=== PATIENT | female | born 1980 | race Caucasian/White ===

== ENCOUNTER 2016-12-13 14:47 | Emergency (ER) | payer OTHER ==
[2016-12-13 14:58] VITALS: BP 131/70; PULSE 95; RESP 18; TEMP 97.7
[2016-12-13] MEDS ORDERED: MORPHINE SULFATE 4 MG/ML SYRINGE IM STA (15:15)
[2016-12-13] MEDS ORDERED: ORPHENADRINE 30 MG/ML 2 ML VIAL IM STA (15:15)
--- NOTE | 2016-12-13 15:17 | ED ---
Back Pain HPI - General Chief Complaint: Back Pain/Injury Stated Complaint: back injury Time Seen by Provider: 12/13/16 15:00 Source: patient, RN notes reviewed Mode of arrival: wheelchair Limitations: no limitations - History of Present Illness Initial Comments: 36-year-old female presents emergency Department chief complaint of back pain. Patient states she was lifting a basket" today and felt a pop in her back. She has pain on left side of her low back. Patient denies any bowel, bladder incontinence or retention. Denies any saddle anesthesias. Patient has no abdominal pain. She did try some ibuprofen earlier today with no relief. Patient states she has no history of back pain. Pain is worse with movement better at rest. - Related Data Previous Rx's Medication Instructions Recorded Cyclobenzaprine [Flexeril] 10 mg PO TID PRN #15 tab 12/13/16 Hydrocodone/Acetaminophen [Hagan 1 tab PO Q6HR PRN #20 tab 12/13/16 5-325] Allergies Allergy/AdvReac Type Severity Reaction Status Date / Time sulfamethoxazole Allergy Swelling Verified 12/13/16 14:58 [From Bactrim] tramadol Allergy Nausea & Verified 12/13/16 14:58 Vomiting & Diarrhea trimethoprim [From Bactrim] Allergy Swelling Verified 12/13/16 14:58 Review of Systems ROS Statement: Those systems with pertinent positive or pertinent negative responses have been documented in the HPI. ROS Other: All systems not noted in ROS Statement are negative. Past Medical History Past Medical History: No Reported History History of Any Multi-Drug Resistant Organisms: None Reported Past Surgical History: Tubal Ligation Past Psychological History: No Psychological Hx Reported Smoking Status: Never smoker Past Alcohol Use History: None Reported Past Drug Use History: None Reported General Exam Limitations: no limitations General appearance: alert, in no apparent distress Neck exam: Present: normal inspection, full ROM. Absent: tenderness, meningismus, lymphadenopathy Respiratory exam: Present: normal lung sounds bilaterally. Absent: respiratory distress, wheezes, rales, rhonchi, stridor Cardiovascular Exam: Present: regular rate, normal rhythm, normal heart sounds. Absent: systolic murmur, diastolic murmur, rubs, gallop, clicks GI/Abdominal exam: Present: soft, normal bowel sounds. Absent: distended, tenderness, guarding, rebound, rigid Extremities exam: Present: normal inspection, full ROM, normal capillary refill. Absent: tenderness, pedal edema, joint swelling, calf tenderness Back exam: Present: full ROM, tenderness (Mild tenderness left low back, left paraspinal of the lumbar region), paraspinal tenderness, other (Pain with straight leg raise). Absent: vertebral tenderness Neurological exam: Present: alert, oriented X3, CN II-XII intact, reflexes normal. Absent: motor sensory deficit Course Vital Signs 12/13/16 14:56 Temperature 97.7 F Pulse Rate 95 Respiratory 18 Rate Blood Pressure 131/70 O2 Sat by Pulse 97 Oximetry Medical Decision Making - Medical Decision Making 36-year-old female presented emergency from for low back pain. Patient has a lumbar strain. Patient has no red flag symptoms no neurological deficits. Patient given pain relief here in emergency department, pain medication to go home with return parameters discussed. Disposition Clinical Impression: Strain of lumbar region Disposition: HOME SELF-CARE Condition: Stable Instructions: Acute Low Back Pain (ED) Additional Instructions: Please return to the Emergency Department if symptoms worsen or any other concerns. Prescriptions: Cyclobenzaprine [Flexeril] 10 mg PO TID PRN #15 tab PRN Reason: Muscle Spasm Hydrocodone/Acetaminophen [Hagan 5-325] 1 tab PO Q6HR PRN #20 tab PRN Reason: Pain Time of Disposition: 15:17
== END 2016-12-13 15:30 | disposition home or self-care (01) ==
LOC: EC 14:47
DX: S39.012A Strain of muscle, fascia and tendon of lower back, initial encounter (principal); Z88.2 Allergy status to sulfonamides; Z88.6 Allergy status to analgesic agent; X50.9XXA Other and unspecified overexertion or strenuous movements or postures, initial encounter
CPT/HCPCS: 99283; 96372 ×2; J2270; J2360